=== PATIENT | female | born 1985 | race Caucasian/White ===

== ENCOUNTER 2018-01-21 08:00 | Inpatient (IN) ==
[2018-01-21] MEDS ORDERED: Metoclopramide 10 MG/2 ML VIAL IVP PRN (08:21)
[2018-01-21] MEDS ORDERED: Ondansetron 4 MG/2 ML VIAL IVP PRN (08:21)
[2018-01-21] MEDS ORDERED: Famotidine 20 MG/2 ML VIAL IVP PRN (08:21)
[2018-01-21] MEDS ORDERED: *HR* Nalbuphine 10 MG/ML AMPUL IVP PRN (08:21)
[2018-01-21] MEDS ORDERED: Naloxone 0.4 MG/ML INJ IVP PRN (08:21)
[2018-01-21] MEDS ORDERED: Ringers Solution, Lactated 1,000 ML IVC SCH (08:30)
[2018-01-21] MEDS ORDERED: miSOPROStol 25 MCG TABLET VG ONE (08:45)
[2018-01-21] MEDS ORDERED: EPHEDrine 50 MG/ML VIAL IVP PRN (08:59)
[2018-01-21] MEDS ORDERED: Epidural Premix (fent/bupiv) 110 ML EP SCH (09:00)
--- NOTE | 2018-01-21 09:02 | Anesthesia Evaluation PreOp ---
Date of Encounter: 01/21/18 Time of Encounter: 08:50 - Past History Planned Operation: vaginal del, G1 induction Cardiac History: Denies any Significant Hx Pulmonary History: Denies Any Significant HX APRON WORKER History: Denies Any Significant HX Other Medical History: Denies Any Significant HX Anesthesia History: No Prior Anesthetic Complications, Past Anesthesia (no family hx.) Alcohol Use: none Drug use: none Medications and Allergies Allergy/AdvReac Type Severity Reaction Status Date / Time No Known Allergies Allergy Verified 04/14/16 13:32 Anesthesia Exam - HEENT Pupil (Motor): Pupils equal Mallampati: II Teeth: Normal Oral Opening: Greater than 3 - APRON WORKER LOC: Oriented APRON WORKER Motor: Normal RUE, Normal LUE, Normal RLE, Normal LLE, Normal Face APRON WORKER Sensory: Normal: RUE, LUE, RLE, LLE, Face - Cardiac Rhythm: Regular Murmur: None - Pulmonary Breath Sounds: bilateral Clear Respiratory Effort: Symmetrical Anesthesia Assess/Plan ASA Score: 2 Level of consciousness: Cooperative, Oriented, Tranquil Anesthetic Plan: General, Spinal, Epidural Monitoring Plan: Standard Monitors Recovery Plan: PACU
[2018-01-21 09:03] LABS: Basophils % 0.3 %; Eosinophils # 0.1 K/mcL (0.0-0.6); Eosinophils % 0.5 %; Hematocrit 41.3 % (35.3-44.9); Hemoglobin 13.4 g/dL (11.5-15.4); Immature Granulocytes % 1.4 % (0-4); Lymphocytes % 17.8 %; Mean Corpuscular HGB Conc 32.4 g/dL (31.6-35.5); Mean Corpuscular Hemoglobin 28.8 pg (28.0-33.3); Mean Corpuscular Volume 88.8 fL (83.0-100.0); Mean Platelet Volume 11.1 fL (9.4-12.4); Monocytes # 0.4 K/mcL (0.0-1.3); Monocytes % 3.5 %; Neutrophils # 8.4 K/mcL (1.6-8.9); Platelet Count 250 K/mcL (140-400); Red Blood Count 4.65 M/mcL (3.82-4.97); Red Cell Distribution Width 14.1 % (11.5-14.5); Segmented Neutrophils % 76.5 %
[2018-01-21] MEDS ORDERED: Lidocaine -MPF 2% 5 ML VIAL ONE (09:08)
[2018-01-21 09:17] LABS: Amphetamine Screen,Urine Negative ng/mL (Cutoff=1000); Barbiturate Screen,Urine Negative ng/mL (Cutoff=200); Benzodiazepines Screen,Urine Negative ng/mL (Cutoff=200); Cannabinoid Screen,Urine Negative ng/mL (Cutoff = 50); Cocaine Screen,Urine Negative ng/mL (Cutoff= 300); Opiate Screen,Urine Negative ng/mL (Cutoff=300); Phencyclidine Screen,Urine Negative ng/mL (Cutoff=25)
--- NOTE | 2018-01-21 09:29 | OB/GYN History & Physical ---
Date of Encounter: 01/21/18 Time of Encounter: 09:15 Assessment and Plan (1) 39 weeks gestation of Current visit: Yes Status: Acute (2) Intrauterine Current visit: Yes Status: Acute Admit to labor and delivery for induction of labor Cytotec 50 g by mouth 1 Labs-CBC and clot to hold Continuous electronic monitoring Pain management plan is epidural-may have Nubain or epidural on request GBS negative Next status evaluation [address] Haas is the OB on-call and is available as needed. Plan of care has been discussed with him and he agrees (3) Intact amniotic membranes during in third trimester Current visit: Yes Status: Acute (4) Type O blood, Rh positive Current visit: Yes Status: Acute History of Present Illness Chief complaint: Scheduled IOL for oligo HPI: Ms. Cash is a 33 year old female at 39 weeks 1 days gestation with an estimated date of of 01/27/18 dated by initial exam. Jaime gann presents today for induction of labor secondary to oligohydramnios. Last TIGRE was 4.5. She endorses good movement and denies leakage of fluid, vaginal bleeding, contractions. Her has been uncomplicated prior to the diagnosis of oligohydramnios. She is followed by the midwives throughout this . records are available electronically and have been reviewed. Labs: O+ GBS- HIV- Hep B- T. Palladium- GC/CL- Rubella immune Varicella immune Past Med Surg Social Fam HX - Past Medical History Medical history: no medical history Psychiatric history: no psych history - Past Surgical History Additional surgical history: wisdome teeth - 6 yrs ago - Social History Smoking Status: Former smoker Smokeless Tobacco Status: No Alcohol use: none Drug use: none - Family History Mother Living Status: Still Living Hx Family Cancer: Yes (colon cancer) Obstetrical History - Pregnancies : 2 Para: 0 Term: 0 : 0 Ab's: 1 Livin Medications and Allergies Allergy/AdvReac Type Severity Reaction Status Date / Time No Known Allergies Allergy Verified 04/14/16 13:32 Review of System OB All systems PM: reviewed and no additional remarkable complaints except as stated Exam - Constitutional Constitutional: well developed, well nourished, no acute distress, average body habitus - HEENT HEENT: PERRL, Normocephaly, Mucus Membranes Moist - Neck Neck exam: full ROM - Lungs Respiratory exam: CTAB - Cardiovascular Cardiovascular exam: RRR, +S1, +S2 - Breasts Breast: bilateral: normal - Abdomen Abdomen: Present: bowel sounds normal, gravid, non tender - Extremities Extremities exam: calf tenderness - Vulva Vulva: bilateral: normal - Vagina Vagina: Present: normal moisture - Cervix Dilation: 0 Effacement: 80 Station: 0 - Uterus Uterus exam: Present: normal size, normal contour - Adnexa Adnexa: bilateral: normal - Anus/Rectum Anus/Rectum: Present: normal perianal skin Results Result Diagrams: 01/21/18 08:23 All other labs normal. - VTE Reasons for not Prescribing Prophylaxis: Treatment not Indicated - Low risk for VTE
[2018-01-21] MEDS ORDERED: miSOPROStol 25 MCG TABLET PO SCH ×2 (10:00→12:00)
[2018-01-21] MEDS ORDERED: miSOPROStol 25 MCG TABLET VG SCH (15:20)
--- NOTE | 2018-01-21 18:03 | OB Labor Progress Note ---
Date of Encounter: 01/21/18 Time of Encounter: 14:00 Labor Progress Note - Subjective Subjective: Patient reports feeling some cramps with contractions overall comfortable - Cervix Cervix: ft/80/0 - Heart Tones Heart Tones: cat i tracing accelerations present 15x15 no decels - Maxeys Maxeys: little to no activity - Interventions Interventions: sve misoprostol 25mcg pv x 1 - Plan Physician notified: No Plan: Continue induction management Recheck cervix in 4 hours Encourage movement Anticipate vaginal delivery
--- NOTE | 2018-01-21 19:16 | OB Labor Progress Note ---
Date of Encounter: 01/21/18 Time of Encounter: 19:13 Labor Progress Note - Subjective Subjective: Pt reports no contractions - Cervix Cervix: 1/90/+1 - Heart Tones Heart Tones: Baseline 130 Accelerations present 15x15 No decelerations Moderate variability FHR category I - [place]: Contractions every 5-6 minutes but patient does not feel them - Interventions Interventions: SVE Cook catheter placed and double inflated to 60ml - Plan Physician notified: Yes Plan: Continue induction management Start low dose pitocin Frequent position changes Anticipate Dr. Haas aware of POC and agrees
[2018-01-21] MEDS ORDERED: Oxytocin 20 units/ LR 1000 mL 20 UNIT/1,000 ML BAG IVC ONE (19:28)
[2018-01-21] MEDS ORDERED: Oxytocin 20 units/ LR 1000 mL 20 UNIT/1,000 ML BAG IVC SCH (19:30)
--- NOTE | 2018-01-22 06:05 | Anesthesia Procedures ---
Addendum entered and electronically signed by Sincere Jensen CRNA 01/22/18 15:41: Delivery Date: 01/22/18 Infant Delivery Time: 08:16 Original Note: Date of Encounter: 01/22/18 Time of Encounter: 05:49 Procedures: Anesthesia - Epidural/Spinal Patient ID/Chart reviewed: Yes Patient examined: Yes OB Eval: Gestational age: term OB Eval: : 1 OB Eval: Contractions: Non-stressed pattern Consent Obtained: Yes Supplemental Oxygen: None/Room Air Site Prep: Aseptic Technique, Sterile prep and drape, 0.5% Chlorhexidine/Alcohol Patient position: upright Local Anesthetic: Lidocaine 1% Amount of Local Anesthetic used: 2 Touhy Needle Gauge: 18 Touhy Needle Depth (cm): 7 Catheter Depth at Skin (cm): 11 Test Dose (1.5% Lido + Epi): Volume given (mls): 3 Test Dose Result: Negative Loading Dose: Other: 10ml from solution Loading Dose Administered: Thru Catheter Infusion Med: 0.125% Bupivacaine w/ 2 mcg/ml Fentanyl Infusion Rate (mls/hr): [address]: Tegaderm, Tape Interspace Used: L3-L4 Loss of Resistance (JAIR): Yes (saline) Blood: No CSF: No Paresthesia: No Procedure: vss though out procedure, FHR stable per RN's
--- NOTE | 2018-01-22 06:24 | OB Labor Progress Note ---
Date of Encounter: 01/22/18 Time of Encounter: 06:22 Labor Progress Note - Subjective Subjective: Pt comfortable with epidural. - Cervix Cervix: 8-9/100/+1 - Heart Tones Heart Tones: Baseline 155 Moderate variability Accelerations present 15x15 No decelerations FHR Category I - Ubly Ubly: Contractions every 2-2.5 minutes - Interventions Interventions: Oliveira bulb out SVE AROM-Small amount clear fluid - Plan Physician notified: No Plan: Continue induction management Peanut ball with frequent position changes Anticipate
[2018-01-22] MEDS ORDERED: *HR* Ropivacaine/PF 0.5% 20 ML VIAL ONE (07:03)
--- NOTE | 2018-01-22 07:14 | Anesthesia Progress Note ---
Date of Encounter: 01/22/18 Time of Encounter: 07:02 Anesthesia Note - Note Note: 01/22/18 07:13 c/o cramping like pain on left lower quad, level T4 right, T6 on left to ETOH skin, tilted patient to left, bolus with 6ml 0.5% rop plain.
--- NOTE | 2018-01-22 08:48 | OB/GYN Procedure Note ---
Delivery - Delivery Date: 01/22/18 Provider: Jennifer Paul Intrapartum events: prolonged labor- > = 20hr Delivery induction: herrera, misoprostol Delivery augmentation: rupture of membranes, pitocin Delivery monitor: external FHT, external uterine Anesthesia: epidural Quantitated Blood Loss: 300 - Infant (s) A Infant Delivery Date: 01/22/18 Infant Delivery Time: 08:16 Presentation: vertex Position: NATALIA Route of delivery: Gender: Female Viability: Viable Pounds: 7 Ounces: 4 Weight Gram: 3.28 kg at 1 minute: 7 at 5 mins: 8 Shoulder Dystocia: not encountered Specimens collected: cord blood Placenta: spontaneous Cord: nuchal cord, 3 umbilical vessels, delivered through nuchal - Repair Episiotomy: none Laceration Description: Perineal - 1st Degree - Complications Delivery complications: none Delivery comments: This is a 33 year old G 2 now P 1 who was admitted for induction of labor secondary to oligohydramnios. She progressed with Cytotec and Herrera bulb induction repaired with Pitocin augmentation and AROM to the second stage of labor. She pushed for an hour and 15 minutes. She delivered a viable, female , "NATALIA Rondon over an first-degree laceration. A nuchal cord was identified and loosely wrapped around the body. The infant was delivered through the cord. A shoulder dystocia was not encountered. The was placed on the maternal abdomen and allowed to transition spontaneously. The cord was double clamped by patch machine operator after pulsations ceased and cut by friend of the mother. The infant was noted to be having difficulty breathing and nursery was called to bedside. After thorough evaluation and deep suction the decision was made to transport to the NICU. scores were 7 at 1 minute and 8 at 5 minutes. The weighed 7 lbs. 4 oz. (3280 g). The placented delivered spontaneously, intact (Del Angel) with a 3-vessel cord. Inspection revealed a first-degree laceration. The laceration was repaired with a 3-0 Monocryl suture and was hemostatic upon completion of repair. The uterus was firm with no active bleeding. EBL was 300 mL. Placenta and umbilical artery blood gases were not sent. There were no complications during the procedure. - Disposition Mom disposition: stable in LDR disposition: taken to nursery
[2018-01-22] MEDS ORDERED: Prenatal Vit/FA 1 EACH TABLET PO SCH (09:37)
[2018-01-22] MEDS ORDERED: Oxytocin 20 units/ LR 1000 mL 20 UNIT/1,000 ML BAG IVC SCH (09:37)
[2018-01-22] MEDS ORDERED: Benzocaine/Menthol 56 GM AEROSOL SPRAY TP PRN (09:37)
[2018-01-22] MEDS ORDERED: Oxytocin 20 units/ LR 1000 mL 20 UNIT/1,000 ML BAG IVC ONE (09:39)
[2018-01-22] MEDS: Ibuprofen 600 MG TABLET PO PRN ×2 (13:22→20:49)
[2018-01-22] MEDS: Acetaminophen 325 MG TABLET PO PRN (20:50)
[2018-01-23] MEDS: Ibuprofen 600 MG TABLET PO PRN ×2 (02:46→09:04)
[2018-01-23] MEDS: Acetaminophen 325 MG TABLET PO PRN ×2 (02:46→09:04)
[2018-01-23 06:10] LABS: Basophils % 0.3 %; Eosinophils # 0.1 K/mcL (0.0-0.6); Eosinophils % 0.8 %; Hematocrit 31.4 % (35.3-44.9); Immature Granulocytes % 1.1 % (0-4); Lymphocytes # 2.8 K/mcL (0.6-4.6); Lymphocytes % 23.6 %; Mean Corpuscular HGB Conc 33.4 g/dL (31.6-35.5); Mean Corpuscular Hemoglobin 29.4 pg (28.0-33.3); Mean Platelet Volume 10.9 fL (9.4-12.4); Monocytes # 0.6 K/mcL (0.0-1.3); Monocytes % 5.5 %; Neutrophils # 8.1 K/mcL (1.6-8.9); Platelet Count 233 K/mcL (140-400); Red Blood Count 3.57 M/mcL (3.82-4.97); Red Cell Distribution Width 14.6 % (11.5-14.5); Segmented Neutrophils % 68.7 %
[2018-01-23 06:21] LABS: Hemoglobin 10.5 g/dL (11.5-15.4)
[2018-01-23 08:26] VITALS: BP 111/66
--- NOTE | 2018-01-23 09:19 | Discharge Summary ---
Date of Encounter: 01/23/18 Time of Encounter: 09:15 - Discharge Diagnosis (1) Status post vaginal delivery Priority: Secondary Status: Acute Comments: Status post vaginal delivery day 1 Meeting day 1 milestones Pain is well controlled Appetite is normal Voiding and passing flatus Lochia is light Small hematoma, no enlargement, discussed precautions Mood is appropriate Discussed safe spacing and methods of contraception, undecided on method Female 7lb 4oz in special care nursery, breast feeding and pumping Well to discharge Follow up in 4 weeks (2) 39 weeks gestation of Priority: Primary Status: Acute Comments: Now Induced and delivered at 39w1d due to oligohydramnios - Discharge Medications Prescriptions: RX: Acetaminophen [Tylenol] 650 mg PO Q6HR PRN #30 tablet PRN Reason: Mild Pain RX: Ibuprofen [Motrin] 600 mg PO Q6HR PRN #30 tablet PRN Reason: Cramping RX: Breast Pump [BREAST PUMP] 1 each .ROUTE AD #1 each RX: Docusate [Colace] 100 mg PO BID #30 capsule RX: Ferrous Sulfate 325 mg PO DAILY #90 tablet Home Medications: RX: Acetaminophen [Tylenol] 650 mg PO Q6HR PRN #30 tablet 01/23/18 [Rx] RX: Benzocaine/Menthol [place] [Dermoplast [place]] 1 appl TP QID PRN aerosol 01/23/18 [Rx] RX: Breast Pump [BREAST PUMP] 1 each .ROUTE AD #1 each 01/23/18 [Rx] RX: Docusate [Colace] 100 mg PO BID #30 capsule 01/23/18 [Rx] RX: Ferrous Sulfate 325 mg PO DAILY #90 tablet 01/23/18 [Rx] RX: Ibuprofen [Motrin] 600 mg PO Q6HR PRN #30 tablet 01/23/18 [Rx] Allergies/Adverse Reactions: Allergy/AdvReac Type Severity Reaction Status Date / Time No Known Allergies Allergy Verified 04/14/16 13:32 Data Procedures and tests throughout hospitalization: Laboratory Tests 01/21/18 01/21/18 01/23/18 08:23 08:23 05:40 WBC 11.0 11.7 H RBC 4.65 3.57 L Hgb 13.4 10.5 L D Hct 41.3 31.4 L MCV 88.8 88.0 MCH 28.8 29.4 MCHC 32.4 33.4 RDW 14.1 14.6 H Plt Count 250 233 MPV 11.1 10.9 Immature Gran % 1.4 1.1 Seg Neutrophils % 76.5 68.7 Lymphocytes % 17.8 23.6 Monocytes % 3.5 5.5 Eosinophils % 0.5 0.8 Basophils % 0.3 0.3 Neutrophils # 8.4 8.1 Lymphocytes # 2.0 2.8 Monocytes # 0.4 0.6 Eosinophils # 0.1 0.1 Basophils # 0.0 0.0 Urine Opiates Screen Negative Ur Barbiturates Screen Negative Ur Phencyclidine Scrn Negative Ur Amphetamines Screen Negative U Benzodiazepines Scrn Negative Urine Cocaine Screen Negative U Marijuana (THC) Screen Negative Ur Drug Screen Interp See Below Labs on day of discharge: Labs from last 24 hours 01/23/18 05:40 WBC 11.7 H RBC 3.57 L Hgb 10.5 L D Hct 31.4 L MCV 88.0 MCH 29.4 MCHC 33.4 RDW 14.6 H Plt Count 233 MPV 10.9 Immature Gran % 1.1 Seg Neutrophils % 68.7 Lymphocytes % 23.6 Monocytes % 5.5 Eosinophils % 0.8 Basophils % 0.3 Neutrophils # 8.1 Lymphocytes # 2.8 Monocytes # 0.6 Eosinophils # 0.1 Basophils # 0.0 Date of admission: 01/21/18 08:02 Primary care physician: Anjel Jacques MD Consults: 01/22/18 09:37 Consult to Guard Manager [CONS] Routine Comment: Vaginal delivery, consult needed Discharging clinician: Antonia Bhatti Anticipated date of discharge: 01/23/18 - Patient Status Disposition: Home, Self-Care Condition: Good Functional capacity at discharge: independent ambulation Overall status at discharge: patient is back to baseline - Discharge Instructions Follow Up With: Anjel Jacques MD [Primary Care Provider] - - Diet and Activity Activity: resume usual activities as tolerated Diet: advance to your usual diet Hospital Course Reason for admission: induction of labor Delivery: Episiotomy: none Laceration: 1st degree Other procedures: none complications: hematoma (small, not enlarging), perineal laceration (repaired) Discharge diagnosis: IUP at term delivered baby: female Hospital course: This is a 33 year old G 2 now P 1 who was admitted for induction of labor secondary to oligohydramnios. She progressed with Cytotec and Oliveira bulb induction repaired with Pitocin augmentation and AROM to the second stage of labor. She pushed for an hour and 15 minutes. She delivered a viable, female infant, "Vic"NATALIA over an first-degree laceration. A nuchal cord was identified and loosely wrapped around the body. The infant was delivered through the cord. A shoulder dystocia was not encountered. The infant was placed on the maternal abdomen and allowed to transition spontaneously. The cord was double clamped by dispatcher tow truck after pulsations ceased and cut by friend of the mother. The was noted to be having difficulty breathing and nursery was called to bedside. After thorough evaluation and deep suction the decision was made to transport infant to the NICU. scores were 7 at 1 minute and 8 at 5 minutes. The weighed 7 lbs. 4 oz. (3280 g). The placented delivered spontaneously, intact (Del Angel) with a 3-vessel cord. Inspection revealed a first-degree laceration. The laceration was repaired with a 3-0 Monocryl suture and was hemostatic upon completion of repair. The uterus was firm with no active bleeding. EBL was 300 mL. Placenta and umbilical artery blood gases were not sent. There were no complications during the procedure. Time Attestation: Total time spent providing and/or coordinating discharge services: Time Spent: Greater than 30 minutes Exam - Constitutional Vitals: Temp Pulse Resp BP Pulse Ox 97.9 F 105 18 111/66 98 01/23/18 08:25 01/23/18 08:25 01/23/18 08:25 01/23/18 08:25 01/23/18 08:25 General appearance IM: A&O X 3, pleasant, no acute distress, answers questions appropriately - Respiratory Respiratory exam: Present: CTAB. Absent: rales, rhonchi, wheezes - Cardiovascular Cardiovascular exam IM: Present: RRR, +S1, +S2 - GI/Abdominal GI/Abdominal exam IM: normal bowel sounds, soft - Rectal Rectal exam: deferred - External exam: lacerations (Repaired perineal laceration, minimal hematoma) Uterine Tone: Firm Uterus Position: At Umbilicus - Extremities Exam Extremities exam IM: Present: normal inspection, pedal edema, radial pulses palpable and symmetrical. Absent: calf tenderness - Neurological Exam Neurological exam: CN II-XII intact, oriented X3, no focal deficits - Psychiatric Additional comments: Mood is appropriate - Attending Attestation I have seen and examined pt independently of resident physician and I agree with the assessment and plan as outlined. Pt feeling sore but otherwise well. Discharge home with precautions today. Follow-up in office in 4-6 weeks.
== END 2018-01-23 11:55 | disposition home or self-care (01) | DRG 806 ==
LOC: 1NENULAB 08:02 → 1NENUOBS 01-22 11:39
PROVIDERS: ADMIT Advanced Practice Midwife; ATTEND Advanced Practice Midwife